=== PATIENT | female | born 1950 | race Two or more races ===

== ENCOUNTER 2020-07-19 16:25 | Inpatient (IN) ==
[2020-07-19 17:38] LABS: ABS Basophils 0.1 10^3/ul (0-0.2); ABS Eosinophils 0.3 10^3/ul (0-0.6); ABS Lymphocytes 1.6 10^3/ul (1.0-4.8); ABS Monocytes 0.6 10^3/ul (0-0.8); ABS Neutrophils 3.2 10^3/ul (1.5-7.7); Eosinophil % 4.6 %; Hematocrit 37 % (35-47); Hemoglobin 12.4 g/dL (12.0-16.0); Lymphocyte % 27.9 %; Mean Corpuscular HGB Conc 34 g/dL (31-36); Mean Corpuscular Hemoglobin 28 pg (27-31); Mean Corpuscular Volume 82 fL (80-97); Nucleated Red Blood Cells % 0.1; Platelet Count 308 10^3/uL (150-450); Red Blood Count 4.46 10^6 /uL (3.70-4.87); Red Cell Distribution Width 14 % (10-15); White Blood Count 5.7 10^3/uL (3.5-10.8)
[2020-07-19 17:56] LABS: Albumin 3.7 g/dL (3.2-5.2); Albumin/Globulin Ratio 1.3 (1-3); BUN/Creatinine Ratio 15.2 (8-20); Calcium 9.5 mg/dL (8.6-10.3); EGFR African American 107.8 (>60); EGFR Non-African American 89.1 (>60); Globulin 2.9 g/dL (2-4); Potassium 2.9 mmol/L (3.5-5.0); Total Bilirubin 0.5 mg/dL (0.2-1.0); Total Protein 6.6 g/dL (6.4-8.9)
[2020-07-19] MEDS ORDERED: Potassium Chlor 20 meq TAB.ER PO ONE (18:07)
[2020-07-19 18:24] LABS: Urine Appearance Cloudy; Urine Bilirubin Negative (Negative); Urine Blood 1+ (Negative); Urine Color Yellow; Urine Glucose Negative (Negative); Urine Ketones Negative (Negative); Urine Nitrite Negative (Negative); Urine Protein Negative (Negative); Urine Specific Gravity 1.012 (1.010-1.030); Urine Urobilinogen Negative (Negative)
[2020-07-19 18:26] LABS: Urine Bacteria Absent (Absent); Urine Red Blood Cell Trace(0-2/hpf) (Absent); Urine Squamous Epithelial Cell Present (Absent); Urine White Blood Cell 1+(6-10/hpf) (Absent)
[2020-07-19 18:50] LABS: Magnesium 1.5 mg/dL (1.9-2.7)
[2020-07-19] MEDS: KCL 10 MEQ/50 ML IVPREMIX 10 MEQ/50 ML BAG IV SCH ×2 (18:57→20:18)
[2020-07-19] MEDS ORDERED: Magnesium Sulfate IV 3 GM in NS 0.9% 100 ml BAG 100 ML IVPB ONE (19:01)
[2020-07-19 19:02] LABS: TSH Ultra Thyroid Stim Horm 0.58 mcIU/mL (0.34-5.60)
[2020-07-19] MEDS ORDERED: Furosemide 20 mg/2 ml IV VIAL IV ONE (19:42)
[2020-07-19] MEDS: TRIHEXYPHENIDYL 5 MG PO SCH (22:28)
[2020-07-19] MEDS: TRIFLUOPERAZINE 5 MG PO SCH (22:28)
[2020-07-19] MEDS: Heparin 5000 UNITS/ML 1 mL VIAL SUBCUT SCH (22:29)
[2020-07-20 05:43] LABS: ABS Eosinophils 0.2 10^3/ul (0-0.6); ABS Lymphocytes 1.4 10^3/ul (1.0-4.8); ABS Monocytes 0.8 10^3/ul (0-0.8); Eosinophil % 2.1 %; Hematocrit 36 % (35-47); Hemoglobin 11.9 g/dL (12.0-16.0); Lymphocyte % 18.9 %; Mean Corpuscular HGB Conc 34 g/dL (31-36); Mean Corpuscular Hemoglobin 28 pg (27-31); Mean Corpuscular Volume 83 fL (80-97); Mean Platelet Volume 7.2 fL (7.4-10.4); Platelet Count 308 10^3/uL (150-450); Red Cell Distribution Width 14 % (10-15); White Blood Count 7.4 10^3/uL (3.5-10.8)
[2020-07-20 05:50] LABS: INR 1.15 (0.82-1.09)
[2020-07-20 06:06] LABS: BUN/Creatinine Ratio 13.3 (8-20); EGFR Non-African American 76.8 (>60); Magnesium 2.1 mg/dL (1.9-2.7); Potassium 3.5 mmol/L (3.5-5.0)
[2020-07-20] MEDS: Heparin 5000 UNITS/ML 1 mL VIAL SUBCUT SCH ×3 (06:15→20:44)
[2020-07-20] MEDS ORDERED: Influenza VAC *QUAD* 2020-21* 0.5 ML SYRINGE IM ONE (09:00)
[2020-07-20] MEDS ORDERED: Lidocaine 4% TOPICAL 50 ML TOP.SOLN TOPICAL PRN ×2 (10:16→17:03)
[2020-07-20] MEDS: TRIHEXYPHENIDYL 5 MG PO SCH (20:43)
[2020-07-20] MEDS: TRIFLUOPERAZINE 5 MG PO SCH (20:54)
[2020-07-21] MEDS: Heparin 5000 UNITS/ML 1 mL VIAL SUBCUT SCH ×2 (06:32→13:20)
[2020-07-21] MEDS ORDERED: Bismuth Subsalicylate 524 MG/30 ML BTL PO PRN (13:10)
[2020-07-21] MEDS ORDERED: Enoxaparin 40 MG/0.4 ML SYR SUBCUT SCH (14:00)
[2020-07-21] MEDS: TRIHEXYPHENIDYL 5 MG PO SCH (21:39)
[2020-07-21] MEDS: TRIFLUOPERAZINE 5 MG PO SCH (21:40)
[2020-07-22 11:12] VITALS: BP 159/65
== END 2020-07-22 11:35 | DRG 948 ==
LOC: ED 16:25 → MEDTELE 19:11
PROVIDERS: ADMIT Internal Medicine; ATTEND Internal Medicine